=== PATIENT | male | born 1940 | race Caucasian/White ===

== ENCOUNTER 2023-11-25 07:03 | Outpatient (REF) | payer MEDICARE, SELFPAY ==
[2023-11-25 07:10] LABS: MANUAL DIFF FLAG NO
[2023-11-25 07:38] LABS: Basophils Percent Auto 0.4 % (0-2); Eosinophils Absolute Auto 0.2 X10*3/uL (0.0-0.4); Hematocrit 36.2 % (42.0-52.0); Hemoglobin 11.8 g/dl (14.0-18.0); Imm Gran Abs Auto 0.02 X10*3/uL (0.00-0.03); Imm Gran Pct Auto 0.4 % (0.0-0.4); Lymphocytes Absolute Auto 0.7 X10*3/uL (1.2-4.9); Lymphocytes Percent Auto 14.8 % (20-40); Mean Corpuscular HGB Conc 32.6 g/dl (31.0-36.0); Mean Corpuscular Hemoglobin 26.6 pg (27.0-33.0); Mean Corpuscular Volume 81.7 fL (80.0-98.0); Monocytes Absolute Auto 0.4 X10*3/uL (0.1-1.2); Monocytes Percent Auto 8.8 % (2-11); Neutrophils Absolute Auto 3.6 x10*3/uL (2.0-8.3); Neutrophils Percent Auto 72.6 % (45-73); Red Blood Count 4.43 X10*6/uL (4.60-5.80)
[2023-11-25 08:03] LABS: Alanine Aminotransferase 10 U/L (0-40); Albumin Level 3.7 g/dL (3.5-5.0); Alkaline Phosphatase 70 U/L (39-117); Anion Gap 12 (12-20); Aspartate Amino Transferase 15 U/L (5-37); Bilirubin Total 0.6 mg/dL (0.0-1.0); Blood Urea Nitrogen 24 mg/dL (9-16); Calcium 9.6 mg/dL (8.4-10.2); Carbon Dioxide 26 mmol/L (22-29); Chloride 110 mmol/L (96-108); Cholesterol 89 mg/dL (<200); Estimated Glomerular Filt Rate > 60; Glucose Random 102 mg/dL (60-115); HDL Cholesterol 26 mg/dL (>40); LDL Cholesterol Calculated 51 mg/dL (<100); Potassium 3.6 mmol/L (3.3-5.1); Sodium 144 mmol/L (135-145); Total Protein 6.3 g/dL (6.5-8.0); Triglycerides 61 mg/dL (<150)
[2023-11-25 08:17] LABS: Thyroid Stimulating Hormone 4.55 uIU/mL (0.32-4.0); Vitamin D 25-OH Total 30.7 ng/mL (>30)
[2023-11-25 08:31] LABS: Mean Platelet Volume 9.6 fL (9.4-12.4); Platelet Count 75 X10*3/uL (160-400)
[2023-11-27 22:08] LABS: TS Negative Control Passed; TS Panel A 0; TS Panel B 0; TS Positive Control Passed; TSpotTB Negative (Negative)
== END 2023-11-25 07:04 | disposition home or self-care (01) ==
LOC: HO.HSH2N 07:03
PROVIDERS: Visit Provider Internal Medicine Interventional Cardiology
DX: Z11.1 Encounter for screening for respiratory tuberculosis (principal); F03.90 Unspecified dementia, unspecified severity, without behavioral disturbance, psychotic disturbance, mood disturbance, and anxiety; I10 Essential (primary) hypertension; I25.10 Atherosclerotic heart disease of native coronary artery without angina pectoris
CPT/HCPCS: 36415; 80053; 80061; 82306; 84443; 85025; 86481

== ENCOUNTER 2024-01-27 05:51 | Outpatient (REF) | payer MEDICARE, SELFPAY ==
[2024-01-27 06:20] LABS: Anion Gap 14 (12-20); Blood Urea Nitrogen 19 mg/dL (9-16); Carbon Dioxide 22 mmol/L (22-29); Chloride 109 mmol/L (96-108); Estimated Glomerular Filt Rate > 60; Glucose Random 106 mg/dL (60-115); Potassium 4.1 mmol/L (3.3-5.1); Sodium 141 mmol/L (135-145)
== END 2024-01-27 05:52 | disposition home or self-care (01) ==
LOC: HO.HSH1N 05:51
PROVIDERS: Visit Provider Internal Medicine Interventional Cardiology
DX: I10 Essential (primary) hypertension (principal)
CPT/HCPCS: 36415; 80048

== ENCOUNTER 2024-04-11 05:59 | Outpatient (REF) | payer MEDICARE, SELFPAY ==
[2024-04-11 06:38] LABS: Anion Gap 11 (12-20); Blood Urea Nitrogen 17 mg/dL (9-16); Calcium 8.8 mg/dL (8.4-10.2); Carbon Dioxide 24 mmol/L (22-29); Chloride 111 mmol/L (96-108); Estimated Glomerular Filt Rate > 60; Glucose Random 98 mg/dL (60-115); Potassium 3.9 mmol/L (3.3-5.1); Sodium 142 mmol/L (135-145)
== END 2024-04-11 06:00 | disposition home or self-care (01) ==
LOC: HO.HSH1N 05:59
PROVIDERS: Visit Provider Internal Medicine Interventional Cardiology
DX: I10 Essential (primary) hypertension (principal)
CPT/HCPCS: 36415; 80048

== ENCOUNTER 2024-05-13 10:15 | Outpatient (REF) | payer MEDICARE, SELFPAY ==
--- OUTSIDE RECORDS SUMMARY | 2024-05-13 10:21 | XMS_ITS | Clinical Summary ---
Author Organization Formerly [facility] Facility Address [address] [place] [address], [place] [address] Care Team Providers Care High Climber Name Role Phone Emily Hinkle MD Primary Care Provider [phone] Medications amLODIPine (NORVASC) 5 MG tablet Take 1 tablet by mouth 1 (one) time each day 01/29/2017 Active carvedilol (Coreg) 25 MG tablet Take 1 tablet by mouth 2 (two) times a day Active dabigatran etexilate (Pradaxa) 150 MG capsule Take 1 capsule by mouth 2 (two) times a day 05/04/2016 Active donepezil (ARICEPT) 10 MG tablet Take 1 tablet by mouth at bed time 02/12/2017 Active irbesartan (AVAPRO) 300 MG tablet Comments: Filled Date: Feb 08 2017 12:00AM Duration: 90 02/08/2017 Active isosorbide mononitrate (IMDUR) 30 MG 24 hr tablet Take 1 tablet by mouth 1 (one) time each day 06/02/2017 Active omeprazole (PriLOSEC) [address] capsule Take 1 capsule by mouth 1 (one) time each day 10/26/2016 Active oxybutynin XL (DITROPAN-XL) 15 MG 24 hr tablet Take 1 tablet by mouth 1 (one) time each day 10/23/2016 Active pantoprazole (PROTONIX) 40 MG EC tablet Take 1 tablet by mouth 1 (one) time each day Active ranolazine (Ranexa) 1000 MG 12 hr tablet Take 1 tablet by mouth 2 (two) times a day 12/01/2016 Active rOPINIRole (REQUIP) 1 MG tablet Take 1 tablet by mouth 1 (one) time each day 07/20/2017 Active rosuvastatin (CRESTOR) 40 MG tablet Take 1 tablet by mouth 1 (one) time each day 03/30/2017 Active sertraline (ZOLOFT) 100 MG tablet Take 0.5 tablets by mouth 1 (one) time each day 02/01/2017 Active Active Problems Problem Noted Date Diagnosed Date Chronic kidney disease stage 2 07/26/2019 Hyperlipidemia 07/26/2019 Hypertensive heart disease without congestive he art failure 07/26/2019 Acute nontraumatic kidney injury 07/26/2019 Resolved Problems Problem Noted Date Diagnosed Date Resolved Date Carcinoma of prostate 07/26/20192019 Ischemic heart disease 07/26/201907/25 Sleep apnea 07/26/2019 07/26/2019 Transient cerebral ischemia 07/26/2019 07/26/2019 Family History Medical History Relation Comments Dementia Sibling brother Relation Status Comments Father Mother Sibling Social History Tobacco Use Types Packs/Day Years Used Date Smoking Tobacco: Never Alcohol Use Standard Drinks/Week Comments Yes 0 (1 standard drink = 0.6 oz pure alcohol) Alcoholic Drinks/day: Occasional social drink Sex and Gender Information Value Date Recorded Sex Assigned at Not on file Legal Sex Male 4:37 PM EST Gender Identity Not on file Sexual Orientation Not on file Last Filed Vital Signs Vital Sign Reading Time Taken Comments Blood Pressure 130/80 09/26/2018 12:00 PM EDT Pulse 74 09/26/2018 12:00 PM EDT Temperature - - Respiratory Rate 16 09/26/2018 12:00 PM EDT Oxygen Saturation - - Inhaled Oxygen Concentration - - Weight 82.6 kg (182 lb) 09/26/2018 12:00 PM EDT Height 177.8 cm (5' 10 ) 09/26/2018 12:00 PM EDT Body Mass Index 26.11 09/26/2018 12:00 PM EDT Plan of Treatment Health Maintenance Due Date Last Done Comments Pneumococcal Vaccine: 65+ Ye ars (1 of 2 - PCV) 1946 Influenza Vaccine (#1) 2023 Hepatitis B Vaccine Aged Out No longe r eligible based on patient's age to complete this topic Insurance MEDICARE Care Teams High Climber Relationship Specialty Start Date End Date Emily Hinkle MD PCP - General 01/31/19
--- OUTSIDE RECORDS SUMMARY | 2024-05-13 10:21 | XMS_ITS | Clinical Summary ---
Author Organization [facility] it Address [address] [place] [address] Care Team Providers Care Zipper Setter Lockstitch Name Role Phone Rhina Maravilla MD Primary Care Provider Allergies No known active allergies Medications trazodone HCl (TRAZODONE ORAL) Take 25 mg by mouth 3 (three) times a day. Active dabigatran etexilate (PRADAXA) 150 mg capsule Take 1 capsule (150 mg total) by mouth 2 (two) times a day. 03/12/2023 Active atorvastatin (LIPITOR) 80 mg tablet Take 1 tablet (80 mg total) by mouth 1 (one) time each day. 02/10/2023 Active lisinopriL (PRINIVIL,ZESTR IL) 2.5 mg tablet Take 1 tablet (2.5 mg total) by mouth 1 (one) time each day. 02/10/2023 Active furosemide (LASIX) 20 mg tablet Take 1 tablet (20 mg total) by mouth 1 (one) time each day. 02/10/2023 Active carvediloL (COREG) 25 mg tablet Take 1 tablet (25 mg total) by mouth 2 (two) times a day with meals. 02/10/2023 Active pantoprazole (PROTONIX) 40 mg EC tablet Take 1 tablet (40 mg total) by mouth 2 (two) times a day. 02/10/2023 Active sertraline (ZOLOFT) 100 mg tablet Take 1 tablet (100 mg total) by mouth 1 (one) time each day. 02/10/2023 Active memantine (NAMENDA) 10 mg tablet Twice A Day Active oxyBUTYnin XL (DITROPAN-XL) 15 mg 24 hr tablet Take 1 tablet (15 mg total) by mouth 1 (one) time each day. 02/10/2023 Active multivitamin/ir on/folic acid (CENTRUM ORAL) Take by mouth 1 (one) time each day. Active nitroglycerin (NITROSTAT) 0.[address] 0.4 mg under the tongue every 5 minutes as needed. Active Active Problems Problem Noted Date Diagnosed Date Anemia 02/23/2022 Overview (04/08/2024): 02/17. Mild iron deficiency Lytic lesion of bone on x-ray 02/10/2021 CHF (congestive heart failur e), NYHA class II, chronic, systolic 02/03/2021 Dementia without behavioral disturbance 05/29/19 21 Hearing loss 05/28/2020 Frequent falls 01/09/2020 Nephrolithiasis 01/09/2020 Thrombocytopenia 01/09/2020 Microscopic hematuria 07/14/2017 Subclinical hypothyroidism 04/16/2016 Right sided weakness 01/05/2014 Shortness of breath 10/03/2013 Overview (04/08/2024): PFT's normal 10/09 Splenic mass 06/02/2012 Splenomegaly 06/02/2012 Hyperlipidemia with target LDL less than 70 12/28 Overview (04/08/2024): IMO update BELKIS (obstructive sleep apnea) 12/29/2010 Overview (04/08/2024): 14 cm H2O; followed by Dr. Parker 03/2022 -severe obstructive sleep apnea AHI=38.8 and RDI=43.1, periodic limb movement disease. Sent referral to pulmonology A-fib 12/24/2010 Overview (04/08/2024): Followed by Dr. Keith HTN (hypertension) 12/24/2010 Cerebral infarction 04/29/2010 Overview (04/08/2024): speech, right sided weakness, balance; improved; thought to be cardioembolic from afib IMO update Pacemaker 03/29/2006 Immunizations Name Administration Dates Next Due Influenza trivalent, 0.5mL ( Fluad) 65yo and older 12/04/2022,01/09/2020,01/10/2018,11/19,11/30/2014 Influenza trivalent, 0.5mL, preservative free (Fluarix; FluLaval; Fluzone) ages 6mo and older (Afluria) 3 years and older 12/11/2013,01/12/2013,12/04/2011,01/07,12/26/2008 Influenza trivalent, with pr eservative (Fluzone; Afluria) 6mo and older 01/02/2019,12/20/2018,01/03/2018 Pneumococcal conjugate 13 va lent (Prevnar 13, PCV13) 2mo and older 04/16/2016 Pneumococcal polysaccharide 23 valent (Pneumovax 23) 2yo and older 01/22/2005 Td Tetanus diptheria (Tdvax) 7yo and older 03/03/2019,06/15/2008 Tdap Tetanus diptheria acell ular pertussis (Boostrix; Adacel) 7yo and older 04/24/2017,11/30/2014 Zoster Live 11/30/2014,03/17/2007 Surgical History Surgery Date Site/Laterality Comments CARDIAC CATHETERIZATION PROCEDURE: HISTORICAL CARDIAC CATH CORONARY ARTERY BYPASS GRAFT 2004 PROCEDURE: HISTORICAL CABG; COMMENT: 3-v; at [place] PROSTATECTOMY PROCEDURE: PROSTATECTOMY; COMMENT: Dr. Maciel CORONARY STENT PLACEMENT PROCEDURE: STENT, CORONARY, MANINDER; COMMENT: 5 stents PACEMAKER IMPLANT 2008 PROCEDURE: HISTORICAL PACEMAKER Medical History Medical History Date Comments Atrial fibrillation (CMS/HCC) DX :Atrial fibrillation (HCC) Essential hypertension, benign D X:Essential hypertension, benign Unspecified cataract DX:Unspecif ied cataract Depressive disorder, not els ewhere classified DX:Depressive disorder, not elsewhere classified Esophageal reflux DX:Esophageal reflux Unspecified glaucoma(365.9) DX:U nspecified glaucoma(365.9) Pure hypercholesterolemia DX:Pur e hypercholesterolemia Cardiomegaly DX:Cardiomegaly Microscopic hematuria DX:Microsc opic hematuria Obstructive sleep apnea (ervin lt) (pediatric) DX:Obstructive sleep apnea ( adult) (pediatric); COMMENT: CPAP Other abnormal glucose DX:Other abnormal glucose Restless legs syndrome (RLS) DX: Restless legs syndrome (RLS) Acute, but ill-defined, cere brovascular disease DX:Acute, but ill-defined, cerebrovascular disease Pain in joint, shoulder region D X:Pain in joint, shoulder region Personal history of malignan t neoplasm of prostate DX:Personal history of malig nant neoplasm of prostate Restless legs syndrome (RLS) DX: Restless legs syndrome (RLS) Historical Medical DX 2001 DX:History of - myocardial infarction; COMMENT: 5 stents CVA (cerebral infarction) 04/2010 DX:CVA (cerebral infarction); COMMENT: speech, right sided weakness, balance; improved Prostate cancer (CMS/HCC) DX:Pro state cancer (HCC) Family History Medical History Relation Name Comments Alzheimer's disease Brother 1 No Known Problems Brother 2 No Known Problems Brother 3 No Known Problems Brother 4 Ovarian cancer Daughter No Known Problems Father Coronary artery disease Mother No Known Problems Sister 1 No Known Problems Sister 2 Depression Son 1 Melanoma Son 1 No Known Problems Son 2 Relation Name Status Comments Brother 1 CAD Brother 2 Brother 3 Brother 4 Daughter Alive Father Mother CAD Sister 1 Sister 2 Alive Son 1 Alive Son 2 Alive Social History Tobacco Use Types Packs/Day Years Used Date Smoking Tobacco: Never Smokeless Tobacco: Never Alcohol Use Standard Drinks/Week Comments No 2 (1 standard drink = 0.6 oz pur e alcohol) Sex and Gender Information Value Date Recorded Sex Assigned at Not on file Legal Sex Male 11:16 AM EST Gender Identity Not on file Sexual Orientation Not on file Obstetrics History Last Filed Vital Signs Vital Sign Reading Time Taken Comments Blood Pressure 122/60 12/18/2022 3:44 PM EDT Pulse 60 12/18/2022 3:44 PM EDT Temperature - - Respiratory Rate - - Oxygen Saturation - - Inhaled Oxygen Concentration - - Weight 73.9 kg (163 lb) 12/18/2022 3:44 PM EDT Height 170.2 cm (5' 7 ) 12/18/2022 3:44 PM EDT Body Mass Index 25.53 12/18/2022 3:44 PM EDT Plan of Treatment Health Maintenance Due Date Last Done Comments RSV Immunization Patients 60+ Years Old (1 - 1-dose 75+ series) 2014 Zoster Vaccines (2 of 3) 01/25/2015 11/30/2014, 02/27 Social Influencers of Health Screening 03/07/2022 COVID-19 Vaccine (5 - season) 2023 10/10/2021, 02/15/2021, 06/07/2020, Additional history exists Influenza Vaccine (#1) 2023 , 01/09/2020, 01/02/2019, Additional history exists Hypertension/CHF/CAD Annual BMP Blood Test 12/05/2023 12/04/2022 Depression Screening 12/14/2024 12/15/2023 Falls Risk Assessment 12/14/2024 12/15/2023 Cholesterol Screening (Lipid Panel) 12/05/2027 12/04/2022 DTaP,Tdap,and Td Vaccines (5 - Td or Tdap) 03/03/2029 03/03/2019, 04/24/2017, 11/30/2014, Additional history exists Pneumococcal Vaccine: 50+ Years Completed 04/16/2016, 01/22/2005 HIB Vaccines Aged Out No longer eligi ble based on patient's age to complete this topic HPV Vaccines Aged Out No longer eligi ble based on patient's age to complete this topic Hepatitis A Vaccines Aged Out No long er eligible based on patient's age to complete this topic Hepatitis B Vaccines Aged Out No long er eligible based on patient's age to complete this topic IPV Vaccines Aged Out No longer eligi ble based on patient's age to complete this topic MMR Vaccines Aged Out No longer eligi ble based on patient's age to complete this topic Meningococcal ACWY Vaccine Aged Out N o longer eligible based on patient's age to complete this topic Meningococcal B Vacine Aged Out No lo nger eligible based on patient's age to complete this topic RSV Immunization Patients Under 20 months Aged Out No longer eligible based on patient's age to complete this topic Varicella Vaccines Aged Out No longer eligible based on patient's age to complete this topic Procedures Procedure Name Priority Date/Time Associated Diagnosis Comments HM DEPRESSION SCREENING Routine 12/15/2023 FALLS RISK ASSESSMENT Routine 12/15/2023 ANNUAL BMP BLOOD TEST Routine 12/04/2022 LIPID PANEL Routine 12/04/2022 from Last 3 Months or Most Recently Relevant to Health Maintenance Results * Falls Risk Assessment (12/15/2023) Pathologist [facility] Falls Risk Assessment Abstracted [facility] Provider HEALTH MAINTENANCE Final Result * Depression Screening (12/15/2023) Pathologist [facility] Depression Screening Abstracted [facility] Provider HEALTH MAINTENANCE Final Result * Annual BMP Blood Test (12/04/2022) Pathologist [facility] Annual BMP Blood Test Abstracted [facility] Provider HEALTH MAINTENANCE Final Result * (ABNORMAL) Lipid panel (12/04/2022) [facility] LDL/HDL Ratio 2 0 - 4 Triglycerides 140 0 - 150 mg/dL Cholesterol 86 0 - 200 mg/dL HDL 36(A) >=40 mg/dL LDL Cholesterol 22 0 - 100 mg/dL Blood Venous blood specimen / Unknown [facility] Provider LAB BLOOD ORDERABLES Sofia l Result from Last 3 Months or Most Recently Relevant to Health Maintenance Care Teams Zipper Setter Lockstitch Relationship Specialty Start Date End Date Rhina Maravilla MD [address] [place] [id number] PCP - General Internal Medicine 08/05/21
[2024-05-13 10:31] LABS: MANUAL DIFF FLAG NO
[2024-05-13 10:34] LABS: Basophils Percent Auto 0.2 % (0-2); Eosinophils Absolute Auto 0.1 X10*3/uL (0.0-0.4); Eosinophils Percent Auto 0.6 % (0-4); Hematocrit 35.5 % (42.0-52.0); Hemoglobin 11.5 g/dl (14.0-18.0); Imm Gran Abs Auto 0.03 X10*3/uL (0.00-0.03); Imm Gran Pct Auto 0.4 % (0.0-0.4); Lymphocytes Absolute Auto 0.5 X10*3/uL (1.2-4.9); Lymphocytes Percent Auto 5.7 % (20-40); Mean Corpuscular HGB Conc 32.4 g/dl (31.0-36.0); Mean Corpuscular Hemoglobin 25.2 pg (27.0-33.0); Mean Corpuscular Volume 77.9 fL (80.0-98.0); Mean Platelet Volume 9.7 fL (9.4-12.4); Monocytes Absolute Auto 0.7 X10*3/uL (0.1-1.2); Monocytes Percent Auto 8.2 % (2-11); Neutrophils Percent Auto 84.9 % (45-73); Red Blood Count 4.56 X10*6/uL (4.60-5.80); Red Cell Distribution Width 16.9 % (11.0-16.0); White Blood Count 8.3 X10*3/uL (4.8-10.8)
[2024-05-13 10:35] LABS: Platelet Count 78 X10*3/uL (160-400)
[2024-05-13 10:46] LABS: Anion Gap 13 (12-20); Blood Urea Nitrogen 16 mg/dL (9-16); Calcium 9.1 mg/dL (8.4-10.2); Carbon Dioxide 22 mmol/L (22-29); Chloride 110 mmol/L (96-108); Estimated Glomerular Filt Rate > 60; Glucose Fasting 117 mg/dL (60-99); Potassium 4.1 mmol/L (3.3-5.1); Sodium 141 mmol/L (135-145)
[2024-05-13 10:54] LABS: B Type Natriuretic Peptide 82 pg/mL (<100)
== END 2024-05-13 10:16 | disposition home or self-care (01) ==
LOC: HO.HSH1N 10:15
PROVIDERS: Visit Provider Internal Medicine Interventional Cardiology
DX: I50.20 Unspecified systolic (congestive) heart failure (principal)
CPT/HCPCS: 36415; 80048; 83880; 85025

== ENCOUNTER 2024-05-27 01:30 | Outpatient (REF) | payer MEDICARE, SELFPAY ==
[2024-05-27 07:13] LABS: Appearance Urine Cloudy; Color Urine Yellow; Glucose Urine UA Negative (Negative); Leukocyte Esterase Urine Moderate (2+) (Negative); Nitrite Urine Positive (Negative); PH 5.5 (5.0-9.0); UMIC TRIGGER UACC YES; Urine Blood Trace (Negative); Urine Ketones Negative (Negative); Urine Protein Negative (Neg-Trace)
[2024-05-27 07:26] LABS: Bacteria Urine 4+ (None Seen); Calcium Oxalate Crystals Urine Present; Hyaline Casts Urine 0-2 /LPF (0-2); RBC Urine 0-2 /HPF (0-2); Squamous Epithelial Cell Urine 0-2 /HPF (0-2); UACC Culture Trigger YES; WBC Urine >50 /HPF (0-5)
== END 2024-05-27 01:31 | disposition home or self-care (01) ==
LOC: HO.LNP 01:30
PROVIDERS: Internal Medicine Interventional Cardiology
DX: R41.82 Altered mental status, unspecified (principal)
CPT/HCPCS: 81001; 81003; 87086; 87088; 87186

== ENCOUNTER 2024-07-06 07:18 | Outpatient (REF) | payer MEDICARE, SELFPAY ==
--- OUTSIDE RECORDS SUMMARY | 2024-07-06 07:23 | XMS_ITS | Clinical Summary ---
Author Organization [facility] Facility Address [address] [place] [address], [place] [address] Care Team Providers Care Towboat Operator Name Role Phone Emily Hinkle MD Primary Care Provider [phone] Medications amLODIPine (NORVASC) 5 MG tablet Take [...] Due Date Last Done Comments Pneumococcal Vaccine: 50+ Ye ars (1 of 2 - PCV) 1945 Influenza Vaccine (Season Ended) 2024 Hepatitis B Vaccine Aged Out No longe r eligible based on patient's age to complete this topic Insurance Medicare Care Teams Towboat Operator Relationship Specialty Start Date End Date Emily Hinkle MD PCP - General 01/31/19
--- OUTSIDE RECORDS SUMMARY | 2024-07-06 07:23 | XMS_ITS | Clinical Summary ---
Author Organization [facility] it Address [address] [place] [address] Care Team Providers Care Brand Communications Manager Name Role Phone Rhina Maravilla MD Primary [...] failur e), NYHA class II, chronic, systolic ([facility] V24, [facility] V28) 02/03/2021 Dementia without behavioral disturbance ([facility] V24, [facility] V28) 05/28/2020 Hearing loss 05/28/2020 Frequent falls 01/09/2020 Nephrolithiasis 01/09/2020 Thrombocytopenia ([facility] V24) 01/09/2020 Microscopic hematuria 07/14/2017 Subclinical hypothyroidism 04/16/2016 [...] movement disease. Sent referral to pulmonology A-fib ([facility] V24, [facility] V28) 12/24/2010 Overview (04/08/2024): Followed by Dr. Keith HTN (hypertension) 12/24/2010 Cerebral infarction ([facility] V24, [facility] V28) 0 04/29/2010 Overview (04/08/2024): speech, right sided weakness, [...] History Medical History Date Comments Atrial fibrillation ([facility] V24, [facility] V28) DX:Atrial fibrillation (HCC) Essential hypertension, benign D X:Essential [...] right sided weakness, balance; improved Prostate cancer ([facility]/HCC V24 , [facility] V28) DX:Prostate cancer (HCC) Family History Medical History Relation [...] Due Date Last Done Comments RSV Immunization Adult Patients (1 - 1-dose 75+ series) 2014 Zoster Vaccines (2 of 3) 01/25/2015 11/30/2014, 02/27 Social Influencers of Health Screening 03/07/2022 COVID-19 Vaccine ( season) 2023 10/10/2021, 02/15/2021, 06/07/2020, Additional history exists Hypertension/CHF/CAD Annual BMP Blood Test 12/05/2023 12/04/2022 Influenza Vaccine (Season Ended) 2024 12/04/2022, 01/09/2020, 01/02/2019, Additional history exists Depression Screening 12/14/2024 12/15/2023 Falls Risk Assessment [...] age to complete this topic Meningococcal B Vaccine Aged Out No l onger eligible based on patient's age to complete this topic RSV Immunization Patients Under 20 months Aged Out No longer eligible based on patient's age to complete this topic Varicella Vaccines Aged Out No longer eligible based on patient's age to complete this topic Procedures Procedure Name Priority Date/Time Associated Diagnosis Comments DEPRESSION SCREENING Routine 12/15/2023 FALLS RISK ASSESSMENT Routine 12/15/2023 ANNUAL BMP BLOOD TEST Routine 12/04/2022 LIPID PANEL Routine 12/04/2022 from Last 3 Months or Most Recently Relevant to Health Maintenance Results * Falls Risk Assessment (12/15/2023) Pathologist [facility] Falls Risk Assessment Abstracted [facility] Provider HEALTH MAINTENANCE Final Result * Depression Screening (12/15/2023) Pathologist [facility] Depression Screening Abstracted [facility] Provider HEALTH MAINTENANCE Final Result * Annual BMP Blood Test (12/04/2022) Pathologist [facility] Annual BMP Blood Test Abstracted [facility] Provider HEALTH MAINTENANCE Final Result * (ABNORMAL) Lipid panel (12/04/2022) [facility] LDL/HDL Ratio 2 0 - 4 Triglycerides 140 0 - 150 mg/dL Cholesterol 86 0 - 200 mg/dL HDL 36(A) >=40 mg/dL LDL Cholesterol 22 0 - 100 mg/dL Blood Venous blood specimen / Unknown [facility] Provider LAB BLOOD ORDERABLES Sofia l Result from Last 3 Months or Most Recently Relevant to Health Maintenance Care Teams Brand Communications Manager Relationship Specialty Start Date End Date Rhina Maravilla MD [address] [place] [id number] PCP - General Internal Medicine 08/05/21
[2024-07-06 07:51] LABS: Anion Gap 12 (12-20); Blood Urea Nitrogen 23 mg/dL (9-16); Calcium 9.1 mg/dL (8.4-10.2); Carbon Dioxide 25 mmol/L (22-29); Chloride 111 mmol/L (96-108); Estimated Glomerular Filt Rate > 60; Glucose Random 123 mg/dL (60-115); Potassium 3.6 mmol/L (3.3-5.1); Sodium 144 mmol/L (135-145)
[2024-07-06 07:58] LABS: B Type Natriuretic Peptide 61 pg/mL (<100)
== END 2024-07-06 07:19 | disposition home or self-care (01) ==
LOC: HO.HSH1N 07:18
PROVIDERS: Visit Provider Internal Medicine Interventional Cardiology
DX: I50.20 Unspecified systolic (congestive) heart failure (principal)
CPT/HCPCS: 36415; 80048; 83880

== ENCOUNTER 2024-07-17 06:59 | Outpatient (REF) | payer MEDICARE, SELFPAY ==
[2024-07-17 07:01] LABS: MANUAL DIFF FLAG NO
[2024-07-17 07:11] LABS: Basophils Percent Auto 0.2 % (0-2); Eosinophils Absolute Auto 0.2 X10*3/uL (0.0-0.4); Eosinophils Percent Auto 2.7 % (0-4); Hematocrit 35.4 % (42.0-52.0); Hemoglobin 11.1 g/dl (14.0-18.0); Imm Gran Abs Auto 0.03 X10*3/uL (0.00-0.03); Imm Gran Pct Auto 0.5 % (0.0-0.4); Lymphocytes Absolute Auto 0.5 X10*3/uL (1.2-4.9); Lymphocytes Percent Auto 9.4 % (20-40); Mean Corpuscular HGB Conc 31.4 g/dl (31.0-36.0); Mean Corpuscular Hemoglobin 24.9 pg (27.0-33.0); Mean Corpuscular Volume 79.4 fL (80.0-98.0); Mean Platelet Volume 9.2 fL (9.4-12.4); Monocytes Absolute Auto 0.5 X10*3/uL (0.1-1.2); Monocytes Percent Auto 8.3 % (2-11); Neutrophils Absolute Auto 4.4 x10*3/uL (2.0-8.3); Neutrophils Percent Auto 78.9 % (45-73); Red Blood Count 4.46 X10*6/uL (4.60-5.80); White Blood Count 5.5 X10*3/uL (4.8-10.8)
[2024-07-17 07:14] LABS: Platelet Count 71 X10*3/uL (160-400)
[2024-07-17 07:25] LABS: Anion Gap 14 (12-20); Blood Urea Nitrogen 21 mg/dL (9-16); Calcium 8.6 mg/dL (8.4-10.2); Carbon Dioxide 25 mmol/L (22-29); Chloride 108 mmol/L (96-108); Estimated Glomerular Filt Rate > 60; Glucose Random 103 mg/dL (60-115); Potassium 3.8 mmol/L (3.3-5.1); Sodium 143 mmol/L (135-145)
[2024-07-17 11:08] LABS: Appearance Urine Cloudy; Color Urine Yellow; Glucose Urine UA Negative (Negative); Leukocyte Esterase Urine Moderate (2+) (Negative); Nitrite Urine Positive (Negative); PH 5.5 (5.0-9.0); UMIC TRIGGER UA YES; Urine Blood Small (1+) (Negative); Urine Ketones Negative (Negative); Urine Protein Negative (Neg-Trace)
[2024-07-17 11:20] LABS: Bacteria Urine 4+ (None Seen); Calcium Oxalate Crystals Urine Present; Hyaline Casts Urine 0-2 /LPF (0-2); Squamous Epithelial Cell Urine 0-2 /HPF (0-2); WBC Clumps Urine Present
== END 2024-07-17 07:00 | disposition home or self-care (01) ==
LOC: HO.HSH1N 06:59
PROVIDERS: Visit Provider Nurse Practitioner
DX: R31.9 Hematuria, unspecified (principal)
CPT/HCPCS: 36415; 80048; 81001; 81003; 85025; 87086; 87088; 87186

== ENCOUNTER 2024-08-20 13:23 | Outpatient (REF) | payer MEDICARE, SELFPAY ==
[2024-08-20 13:26] LABS: MANUAL DIFF FLAG NO
[2024-08-20 13:34] LABS: Basophils Percent Auto 0.3 % (0-2); Eosinophils Absolute Auto 0.1 X10*3/uL (0.0-0.4); Eosinophils Percent Auto 0.8 % (0-4); Hematocrit 38.2 % (42.0-52.0); Hemoglobin 12.5 g/dl (14.0-18.0); Imm Gran Abs Auto 0.02 X10*3/uL (0.00-0.03); Imm Gran Pct Auto 0.3 % (0.0-0.4); Lymphocytes Absolute Auto 0.5 X10*3/uL (1.2-4.9); Lymphocytes Percent Auto 6.9 % (20-40); Mean Corpuscular HGB Conc 32.7 g/dl (31.0-36.0); Mean Corpuscular Hemoglobin 25.6 pg (27.0-33.0); Mean Corpuscular Volume 78.1 fL (80.0-98.0); Mean Platelet Volume 9.9 fL (9.4-12.4); Monocytes Absolute Auto 0.6 X10*3/uL (0.1-1.2); Monocytes Percent Auto 8.4 % (2-11); Neutrophils Absolute Auto 6.2 x10*3/uL (2.0-8.3); Neutrophils Percent Auto 83.3 % (45-73); Red Blood Count 4.89 X10*6/uL (4.60-5.80); Red Cell Distribution Width 16.3 % (11.0-16.0); White Blood Count 7.4 X10*3/uL (4.8-10.8)
[2024-08-20 13:35] LABS: Platelet Count 88 X10*3/uL (160-400)
[2024-08-20 13:59] LABS: Alanine Aminotransferase 17 U/L (0-40); Albumin Level 4.3 g/dL (3.5-5.0); Anion Gap 16 (12-20); Aspartate Amino Transferase 27 U/L (5-37); Bilirubin Direct 0.3 mg/dL (0.0-0.5); Bilirubin Total 2.4 mg/dL (0.0-1.0); Blood Urea Nitrogen 21 mg/dL (9-16); Calcium 9.5 mg/dL (8.4-10.2); Carbon Dioxide 25 mmol/L (22-29); Chloride 107 mmol/L (96-108); Estimated Glomerular Filt Rate > 60; Glucose Random 99 mg/dL (60-115); Sodium 144 mmol/L (135-145); Total Protein 7.1 g/dL (6.5-8.0)
[2024-08-20 14:16] LABS: Thyroid Stimulating Hormone 3.19 uIU/mL (0.32-4.0)
[2024-08-20 14:31] LABS: Alkaline Phosphatase 105 U/L (39-117)
== END 2024-08-20 13:24 | disposition home or self-care (01) ==
LOC: HO.HSH1N 13:23
PROVIDERS: Visit Provider Nurse Practitioner Acute Care
DX: R53.1 Weakness (principal); R53.83 Other fatigue
CPT/HCPCS: 36415; 80053; 82248; 84443; 85025